=== PATIENT | female | born 1995 | race Caucasian/White ===

== ENCOUNTER 2025-01-27 19:32 | Emergency (ER) | payer OTHER ==
[2025-01-27 19:43] VITALS: BP 114/67; PULSE 95; RESP 18; TEMP 98.6; BMI 26.2
[2025-01-27] MEDS ORDERED: guaiFENesin/D-METHORPHAN HB 10 ML UNIT-DOSE CUPS ONE (20:06)
[2025-01-27] MEDS ORDERED: predniSONE 20 MG TABLET (UD) ONE (20:06)
[2025-01-27] MEDS: guaiFENesin/D-METHORPHAN HB 10 ML UNIT-DOSE CUPS PO ONE (20:08)
[2025-01-27] MEDS: predniSONE 20 MG TABLET (UD) PO ONE (20:08)
== END 2025-01-27 21:07 | disposition home or self-care (01) ==
LOC: JERFT 19:32
DX: J40 Bronchitis, not specified as acute or chronic (principal); R09.81 Nasal congestion; R05.9 Cough, unspecified; R09.82 Postnasal drip; J34.89 Other specified disorders of nose and nasal sinuses
CPT/HCPCS: 0241U-QW; 71046-TC-FY; 99284-25